=== PATIENT | male | born 1935 | race Hispanic/Latino ===

== ENCOUNTER 2021-09-29 11:24 | Inpatient (IN) | payer MEDICARE ==
[~2021-09-29] VITALS: Ht 175.3 cm; Wt 75.3 kg
[2021-09-29] VITALS (7 sets, daily range): BP systolic 109–139; BP diastolic 50–68
[2021-09-29] MEDS ORDERED: FENTANYL CITRATE PF 50 MCG/1 ML 2ML VIAL ONE (14:09)
[2021-09-29] MEDS ORDERED: MIDAZOLAM HCL 1 MG/ML 2ML VIAL ONE (14:09)
[2021-09-29] MEDS ORDERED: BUPIVACAINE/PF 0.25% 30ML VIAL IJ ONE (14:09)
[2021-09-29] MEDS ORDERED: LIDOCAINE HCL 1% 20 ML VIAL ONE (14:09)
[2021-09-29] MEDS ORDERED: VANCOMYCIN 1G/250ML KIT 250 ML IV ONE ×2 (14:10→14:11)
[2021-09-29] MEDS ORDERED: LIDOCAINE HCL 1% MDV 50ML VIAL ONE (14:12)
[2021-09-29] MEDS ORDERED: TAMS-1 PO (14:27)
[2021-09-29] MEDS ORDERED: ASPI-1197 PO (14:27)
[2021-09-29] MEDS ORDERED: PRAV40TA3 PO (14:27)
[2021-09-29] MEDS ORDERED: VITAMIN D PO (14:27)
[2021-09-29] MEDS ORDERED: OCTYL 2-CYANOACRYLATE 1 EACH TP ONE (16:10)
[2021-09-29] MEDS ORDERED: ONDANSETRON 4MG INJ IV PRN (16:30)
[2021-09-29] MEDS ORDERED: ACETAMINOPHEN WITH CODEINE 1 TAB TAB PO PRN (16:30)
[2021-09-29] MEDS: ACETAMINOPHEN WITH CODEINE 1 TAB TAB PO PRN ×2 (17:54→22:11)
[2021-09-29] MEDS ORDERED: CETI5TAB12 PO (22:35)
[2021-09-29] MEDS ORDERED: LOSA100T58 PO (22:35)
[2021-09-30] MEDS ORDERED: VANCOMYCIN 1G/250ML KIT 250 ML IV ONE ×2 (00:17→13:13)
[2021-09-30 00:21] VITALS: BP 92/63
[2021-09-30] MEDS ORDERED: VANCOMYCIN 1G VIAL IVPB ONE ×3 (01:00→13:00)
[2021-09-30 04:00] VITALS: BP 102/57
[2021-09-30] MEDS: ACETAMINOPHEN WITH CODEINE 1 TAB TAB PO PRN (04:01)
[2021-09-30 08:00] VITALS: BP 109/63
[2021-09-30 12:59] VITALS: BP 98/55
[2021-09-30] MEDS ORDERED: CEPH500B PO (16:13)
== END 2021-09-30 17:45 | disposition home or self-care (01) | DRG 244 ==
LOC: 2CH 13:16 → 2AH 13:17
PROVIDERS: ADMIT Internal Medicine Cardiovascular Disease; ATTEND Internal Medicine Cardiovascular Disease
PROC: 0JH606Z Insertion of Pacemaker, Dual Chamber into Chest Subcutaneous Tissue and Fascia, Open Approach (ICD-10-PCS; principal; 2021-09-29)
PROC: 02H63JZ Insertion of Pacemaker Lead into Right Atrium, Percutaneous Approach (ICD-10-PCS; 2021-09-29)
PROC: 02HK3JZ Insertion of Pacemaker Lead into Right Ventricle, Percutaneous Approach (ICD-10-PCS; 2021-09-29)
DX: I44.2 Atrioventricular block, complete (principal); N40.0 Benign prostatic hyperplasia without lower urinary tract symptoms; I10 Essential (primary) hypertension; I25.10 Atherosclerotic heart disease of native coronary artery without angina pectoris; I45.10 Unspecified right bundle-branch block; E78.5 Hyperlipidemia, unspecified; Z87.891 Personal history of nicotine dependence
CPT/HCPCS: 33208; 71046; 99156; 99157; C1785; G0378; J2250; J3010; J3370; J3490

== ENCOUNTER 2023-12-02 06:42 | Day surgery (SDC) | payer MEDICARE ==
[2023-11-28 10:11] LABS: BASOPHILS # (AUTO) 0.04 K/uL (0.00-0.20); BASOPHILS % (AUTO) 0.5 % (0.0-5.0); EOSINOPHILS # (AUTO) 0.05 K/uL (0.00-0.70); EOSINOPHILS % (AUTO) 0.6 % (0.0-8.0); HEMATOCRIT 47.2 % (42-54); IMMATURE GRANULOCYTE ABSOLUTE 0.05 K/uL (0-1); LYMPHOCYTES % (AUTO) 22.3 % (21.0-51.0); MEAN CORPUSCULAR HEMOGLOBIN 30.1 pg (27.0-33.0); MEAN CORPUSCULAR HGB CONC 33.7 g/dL (32.0-36.0); MEAN CORPUSCULAR VOLUME 89.4 fL (79-99); MONOCYTES % (AUTO) 11.2 % (3.0-13.0); NEUTROPHILS # (AUTO) 5.7 K/uL (1.8-7.7); NEUTROPHILS % (AUTO) 64.8 % (40.0-77.0); PLATELET COUNT (AUTO) 192 K/uL (130-400); RED BLOOD CELL COUNT(AUTO) 5.28 MIL/uL (4.50-6.20); RED CELL DISTRIBUTION WIDTH 13.5 % (11.0-15.5); WHITE BLOOD COUNT (AUTO) 8.8 K/uL (4.8-10.8)
[2023-11-28 10:25] VITALS: BP 137/56; PULSE 75; RESP 18
[2023-11-28 10:25] LABS: CREATININE 1.1 mg/dL (0.5-1.3); POTASSIUM 4.4 mmol/L (3.5-5.1)
[2023-11-28 10:27] LABS: INR 1.03 (0.85-1.15); PROTHROMBIN TIME 11.1 SEC (9.6-11.6)
[2023-11-28 10:29] LABS: PARTIAL THROMBOPLASTIN TIME 28.3 SEC (26.3-35.5)
[~2023-12-02] VITALS: Ht 180.3 cm; Wt 76.1 kg
[2023-12-02] VITALS (17 sets, daily range): BP systolic 94–133; BP diastolic 49–71; PULSE 70–80; RESP 14–18
[~2023-12-02 06:42] MED LIST: AMIO200T68 PO; DOCU100C33 PO; ERGO500093 PO; SIMV-46 PO; TAMS-1 PO
[2023-12-02] MEDS ORDERED: ONDANSETRON 4MG INJ ONE (08:47)
[2023-12-02] MEDS ORDERED: PROPOFOL 10 MG/ML 20ML VIAL IV ONE (08:47)
[2023-12-02] MEDS ORDERED: ROCURONIUM BROMIDE 10MG/1ML 5ML VL ONE (08:47)
[2023-12-02] MEDS ORDERED: FENTANYL CITRATE PF 50 MCG/1 ML 2ML VIAL ONE (08:48)
[2023-12-02] MEDS ORDERED: LIDOCAINE 1%-EPI 1:100,000 20 ML VIAL ONE (08:50)
[2023-12-02] MEDS ORDERED: ROPIVACAINE 0.5% 5MG/ML 30ML ONE (08:50)
[2023-12-02] MEDS: LACTATED RINGERS 1000ML 1,000 ML IV ONE (08:56)
[2023-12-02] MEDS: CEFAZOLIN SODIUM 2 GM VIAL ONE (08:56)
[2023-12-02] MEDS ORDERED: GLYCOPYRROLATE 0.2 MG/ML 5 ML VIAL ONE (09:59)
[2023-12-02] MEDS ORDERED: NEOSTIGMINE METHYLSULFATE 1MG/ML IV ONE (09:59)
[2023-12-02] MEDS ORDERED: DOCU-116 PO (10:04)
[2023-12-02] MEDS ORDERED: GABA-529 PO (10:04)
[2023-12-02] MEDS ORDERED: TRAM50TA4 PO (10:04)
[2023-12-02] MEDS ORDERED: METH-662 PO (10:04)
[2023-12-02] MEDS: ACETAMINOPHEN 1,000 MG/100 ML VIAL IV ONE (10:27)
== END 2023-12-02 12:40 | disposition home or self-care (01) ==
LOC: DAH 06:42
PROVIDERS: ATTEND Surgery
DX: K40.30 Unilateral inguinal hernia, with obstruction, without gangrene, not specified as recurrent (principal); E78.5 Hyperlipidemia, unspecified; I10 Essential (primary) hypertension; Z95.0 Presence of cardiac pacemaker; Z79.01 Long term (current) use of anticoagulants; Z79.899 Other long term (current) drug therapy
CPT/HCPCS: 80048; 85025; 85610; 85730; 86850 ×2; 86900 ×2; 86901 ×2; 36415 ×2; 93005; 49650; 64486; A6260; A4663; J7030; J7120; J3010; J3490 ×3; J2704; J2405; J2710; J2795; J0690; C9250; A4649 ×3; A4930 ×2; C1781; A4215; A4223; A4213; A4222; A4221